=== PATIENT | female | born 1985 | race Two or more races ===

== ENCOUNTER 2024-03-11 19:17 | Emergency (ER) | payer MEDICAID, OTHER ==
[~2024-03-11] VITALS: Ht 172.7 cm; Wt 63.4 kg
[2024-03-11 21:46] LABS: Basophils # (auto) 0 10 ^3/uL (0-0.2); Basophils % (auto) 0.2 % (0.0-2.0); Eosinophils # (auto) 0 10 ^3/uL (0-0.8); Eosinophils % (auto) 0.2 % (0.0-7.0); Hematocrit 42.2 % (36.0-46.0); Hemoglobin 14.4 g/dL (12.2-16.2); Lymphocytes # (auto) 0.8 10 ^3/uL (0.4-5.4); Lymphocytes % (auto) 5.7 % (10.0-50.0); Mean Corpuscular Hemoglobin 28.9 pg (28.0-32.0); Mean Corpuscular Hgb Conc. 34.3 g/dL (32.0-36.0); Mean Corpuscular Volume 84.2 fL (80.0-100.0); Monocytes # (auto) 0.6 10 ^3/uL (0-1.3); Monocytes % (auto) 4.2 % (0.0-12.0); Neutrophils # (auto) 12.7 10 ^3/uL (1.6-8.6); Neutrophils % (auto) 89.7 % (37.0-80.0); Nucleated Red Blood Cells % 0.1 %; Red Blood Cells 5.01 10^6/uL (4.0-5.20); White Blood Cell 14.1 10^3/uL (4.4-10.8)
[2024-03-11 22:03] LABS: Chloride 107 mmol/L (98-107); Potassium 3.1 mmol/L (3.5-5.1); Sodium 138 mmol/L (136-145)
[2024-03-11 22:04] LABS: Anion Gap 10 (5-15); Calcium 10.2 mg/dL (8.7-10.4); Carbon Dioxide 21 mmol/L (20-30)
[2024-03-11 22:09] LABS: BUN/Creatinine Ratio 19.4 (10.0-20.0); Blood Urea Nitrogen 14 mg/dL (9-23); Glucose 100 mg/dL (74-106)
[2024-03-12 00:34] LABS: Urine Bacteria None Seen /hpf (None Seen)
[2024-03-12 00:57] LABS: Urine Blood 3+ /uL (Negative); Urine Clarity Turbid (Clear); Urine Color Light-Orange (Yellow); Urine Mucus MODERATE (None Seen); Urine Protein, UAD 1+ (Negative); Urine Specific Gravity 1.037 (1.001-1.035); Urine Urobilinogen 2 mg/dL (Negative); Urine WBC 8 /hpf (0 - 5)
[2024-03-12] MEDS ORDERED: BACDST PO (01:33)
[2024-03-12 01:38] LABS: Amphetamine Screen, Urine Pos (NEGATIVE); Barbiturate Scree,Urine Pos (NEGATIVE); Benzodiazephine Screen, Urine Neg (NEGATIVE); Cannabinoid Screen, Urine Pos (NEGATIVE); Cocaine Screen, Urine Neg (NEGATIVE); Opiate Scree,Urine Neg (NEGATIVE); Phencyclidine Screen, Urine Neg (NEGATIVE)
[2024-03-12] MEDS: LORazepam 0.5 MG TAB PO ONE (01:58)
[2024-03-12 02:00] VITALS: BP 115/81; PULSE 105; RESP 22; O2SAT 99
== END 2024-03-12 02:03 | disposition home or self-care (01) ==
LOC: EDBD 19:17 → ER 19:17
DX: F41.0 Panic disorder [episodic paroxysmal anxiety] (principal); R10.2 Pelvic and perineal pain; F15.10 Other stimulant abuse, uncomplicated; N39.0 Urinary tract infection, site not specified; F12.10 Cannabis abuse, uncomplicated; F13.10 Sedative, hypnotic or anxiolytic abuse, uncomplicated
CPT/HCPCS: 36415; 80048; 80307; 81001; 84484; 84702; 85025; 93005

== ENCOUNTER 2024-09-27 17:18 | Emergency (ER) | payer MEDICAID ==
[~2024-09-27] VITALS: Ht 165.1 cm; Wt 160.0 kg
[~2024-09-27 17:18] MED LIST: BACDST PO
[2024-09-27] MEDS: NALOXONE HCL 0.4 MG/ML VIAL IV ONE (17:40)
[2024-09-27] MEDS: ONDANSETRON HCL 4 MG/2 ML VIAL IV ONE (17:40)
[2024-09-27] MEDS: SODIUM CHLORIDE 0.9% 2,000 ML IV ONE (17:40)
[2024-09-27 18:50] VITALS: PULSE 107; RESP 15; O2SAT 94
--- NOTE | 2024-09-27 18:51 | ED.PDOC ---
Altered Mental Status HPI Comments 39 y.o female presents to the ED via EMS for an evaluation of an overdose. EMS reports patient's children, 14 and 15 year old found patient unresponsive on the ground at home today. EMS noted what they believe was cocaine with needle on the floor. Patient is slow to respond upon ED arrival. No further information r eported. Chief Complaint: Overdose Time Seen by MD: 17:50 Primary Care Provider: UNKNOWN Reviewed Notes: Nurses Notes, Hide Trimmer Notes, Medications, Allergies Allergies: Coded Allergies: NO KNOWN ALLERGIES (Unverified , 03/12/24) Home Meds Active Scripts Sulfamethoxazole W/Trimethopri (Bactrim Ds Tablet) 1 Tab Tb, 1 TAB PO BID for 7 Days, #14 TAB 0 Refills Prov:PIETER ECHEVARRIA 03/12/24 Information Source: Emergency Med Personnel Mode of Arrival: EMS Severity: Moderate Timing: Hours Duration: Since onset Recent: None History of: None Past Medical History PAST MEDICAL HISTORY: Denies Surgical History: Denies all surgeries Family History Family History: Unknown Social History Smoker: Non-Smoker Alcohol: Denies ETOH Use Drugs: Cocaine, Marijuana, Methamphetamine Lives In: Home Constitutional: denies: chills, diaphoresis, fatigue, fever, malaise, sweats, weakness, others EENTM: denies: blurred vision, double vision, ear bleeding, ear discharge, ear drainage, ear pain, ear ringing, eye pain, eye redness, hearing loss, mouth pain, mouth swelling, nasal discharge, nose bleeding, nose congestion, nose pain, photophobia, tearing, throat pain, throat swelling, voice changes, others Respiratory: denies: cough, hemoptysis, orthopnea, SOB at rest, shortness of breath, SOB with excertion, stridor, wheezing, others Cardiovascular: denies: chest pain, dizzy spells, diaphoresis, Dyspnea on exertion, edema, irregular heart beat, left arm pain, lightheadedness, palpitat ions, PND, syncope, others Gastrointestinal: denies: abdomen distended, abdominal pain, blood streaked bow els, constipated, diarrhea, dysphagia, difficulty swallowing, hematemesis, melena, nausea, poor appetite, poor fluid intake, rectal bleeding, rectal pain, vomiting, others Genitourinary: denies: abnormal vagina bleeding, burning, dyspareunia, dysuria, flank pain, frequency, hematuria, incontinence, pain, , vagina discharge, urgency, others Neurological: denies: dizziness, fainting, headache, left sided numbness, left sided weakness, numbness, paresthesia, pre-existing deficit, right sided numbness, right sided weakness, seizure, speech problems, tingling, tremors, weakness, others Musculoskeletal: denies: back pain, gout, joint pain, joint swelling, muscle pain, muscle stiffness, neck pain, others Integumetry: denies: bruises, change in color, change in hair/nails, dryness, laceration, lesions, lumps, rash, wounds, others Allergic/Immunocompromised: denies: Difficulty Healing, Frequent Infections, Hives, Itching, others Hematologic/Lymphatic: denies: anemia, blood clots, easy bleeding, easy bruisi ng, swollen glands, others Endocrine: denies: excessive hunger, excessive sweating, excessive thirst, exce ssive urination, flushing, intolerance to cold, intolerance to heat, unexplained weight gain, unexplained weight loss, others Psychiatric: denies: anxiety, bipolar disorder, depression, hopeless, panic disorder, schizophrenia, sleepless, suicidal, others Unable to Obtain due to: Altered Mental Status (Due to overdose of illicit drug) Physical Exam General Appearance: Moderate Distress (Patient was obtunded at time of evaluation due to illicit drug overdose.), Obese HEENT: Normal ENT Inspection Neck: Normal Inspection Respiratory: Lungs Clear, No Accessory Muscle Use, No Respiratory Distress, Normal Breath Sounds Cardiovascular: No Edema, No JVD, No Murmur, No Gallop, Normal Peripheral Pulses, Regular Rate/Rhythm Breast Exam: Deferred Gastrointestinal: No Pulsatile Mass, Normal Bowel Sounds, Soft Genitalia: Deferred Pelvic: Deferred Rectal: Deferred Extremities: Normal range of motion Musculoskeletal : Apperance: Normal Neurologic: No Motor Deficits, No Sensory Deficits Cerebellar Function: NOT DONE Reflexes: NOT DONE Skin: Dry, Normal Color, Warm Lymphatic: NOT DONE Was a procedure done? Was a procedure done?: No Differential Diagnosis (ALOC) Differential Diagnosis: Drug Overdose X-Ray, Labs, Meds, VS Vital Signs Date Time Temp Pulse Resp B/P (MAP) Pulse Ox O2 Delivery O2 Flow Rate FiO2 09/27/24 20:00 112 12 120/78 (92) 95 09/27/24 19:40 98.1 109 20 125/86 (99) 96 98.1 09/27/24 19:40 Room Air* 0 21 09/27/24 18:50 107 15 94 Room Air* 0 21 09/27/24 18:48 107 15 131/91 (104) 94 09/27/24 17:29 98.9 133 10 148/90 (109) 100 Lab Test 09/27/24 21:36 Range/Units Urine Color Yellow Yellow Urine Clarity Turbid H Clear Urine pH 5.5 5.0-9.0 Urine Specific [place] 1.017 1.001-1.035 Urine Protein 1+ H Negative Urine Ketones Negative Negative Urine Blood Trace H Negative /uL Urine Nitrite Negative Negative Urine Bilirubin Negative Negative Urine Urobilinogen Normal Negative mg/dL Urine Leukocyte Esterase Negative Negative /uL Urine RBC 4 0 - 4 /hpf Urine Microscopic WBC 5 0-5 /HPF Urine Squamous Epithelial Cells Mod <5 /hpf Urine Bacteria Few H None Seen /hpf Urine Hyaline Casts Mod 0 - 2 /lpf Urine Mucus Few None Seen Urine Glucose 1+ H Normal mg/dL Urine Opiates Screen Neg NEGATIVE Urine Fentanyl Screen Pos NEGATIVE Urine Barbiturates Screen Neg NEGATIVE Urine Phencyclidine Screen Neg NEGATIVE Urine Amphetamines Screen Pos NEGATIVE Urine Benzodiazepines Screen Neg NEGATIVE Urine Cocaine Screen Neg NEGATIVE Urine Cannabinoids Screen Neg NEGATIVE Current Medications Medications (Trade) Dose Ordered Sig/Maritza Route Start Time Stop Time Status Last Admin Naloxone HCl (Narcan) 0.4 mg ONCE ONCE IV 09/27/24 17:30 09/27/24 17:31 DC 09/27/24 17:40 Sodium Chloride 2,000 ml @ 1,000 mls/hr Q2H ONCE IV 09/27/24 17:30 09/27/24 19:29 DC 09/27/24 17:40 Ondansetron HCl (Zofran) 4 mg ONCE ONCE IV 09/27/24 17:30 09/27/24 17:31 DC 09/27/24 17:40 X-Ray, Labs, Meds, VS Comment Patient's laboratories were remarkable for methamphetamine use. Patient was given Narcan, fluids, Zofran and support law at the facility. Advised patient to cease illicit drug use immediately and follow up with a support groups such as narcotics [facility]. Time of 1ST Reevaluation: 22:08 Reevaluation 1ST: Improved Consultation: PCP, Other (Narcotics [facility]) Patient Education/Counseling: Diagnosis, Treatment, Other Family Education/Counseling: Diagnosis, Treatment, No Family Present Departure 1 Departure Time of Disposition: 22:09 Impression: Primary Impression: Overdose of fentanyl Disposition: HOME / SELF CARE / HOMELESS Condition: Stable Additional Instructions: Advised patient practice good hydration and healthy nutrition for the next few days. Additionally, advised patient follow up with a narcotics abuse assistance programs such as [facility]. Discharged With: Self, Friend Critical Care Note Critical Care Time?: No Stability Stability form required: No I personally scribed for FRANCOISE ADAM ([email or web address]) on 09/27/24 at 18:51. Electronically submitted by Anisa Barton ([facility]). FRANCOISE ADAM PAC Sep 27, 2024 18:51
[2024-09-27 19:40] VITALS: TEMP 98.1
[2024-09-27 20:00] VITALS: BP 120/78; PULSE 112; RESP 12; O2SAT 95
[2024-09-27 21:46] LABS: Urine Bacteria FEW /hpf (None Seen); Urine Blood TRACE /uL (Negative); Urine Clarity Turbid (Clear); Urine Color Yellow (Yellow); Urine Hyaline Cast MOD /lpf (0 - 2); Urine Mucus FEW (None Seen); Urine Protein, UAD 1+ (Negative); Urine Specific Gravity 1.017 (1.001-1.035); Urine Squamous Epithelial Cell MOD /hpf (<5); Urine Urobilinogen Normal (Negative); Urine WBC 5 /HPF (0-5); Urine pH 5.5 (5.0-9.0)
[2024-09-27 22:02] LABS: Amphetamine Screen, Urine Pos (NEGATIVE); Barbiturate Scree,Urine Neg (NEGATIVE); Benzodiazephine Screen, Urine Neg (NEGATIVE); Cannabinoid Screen, Urine Neg (NEGATIVE); Cocaine Screen, Urine Neg (NEGATIVE); Opiate Scree,Urine Neg (NEGATIVE); Phencyclidine Screen, Urine Neg (NEGATIVE)
== END 2024-09-27 22:22 | disposition home or self-care (01) ==
LOC: EDBD 17:18 → ER 17:24
DX: T40.411A Poisoning by fentanyl or fentanyl analogs, accidental (unintentional), initial encounter (principal); Z79.2 Long term (current) use of antibiotics; Y92.89 Other specified places as the place of occurrence of the external cause
CPT/HCPCS: 80307; 81001; 96361; 96374; 96375; 99284; J2310; J2405; J7030